=== PATIENT | female | born 1965 | race Caucasian/White ===

== ENCOUNTER 2018-04-08 09:37 | Emergency (ER) | payer MEDICAID ==
[2018-04-08] MEDS: KETOROLAC 60 MG INJ IM (11:19)
== END 2018-04-08 12:43 | disposition home or self-care (01) ==
LOC: FTE 09:37
DX: M25.562 Pain in left knee (principal); E11.9 Type 2 diabetes mellitus without complications; I10 Essential (primary) hypertension; Z79.84 Long term (current) use of oral hypoglycemic drugs
CPT/HCPCS: 73562; 93971; 96372; 99285-25